=== PATIENT | female | born 1995 | race Two or more races ===

== ENCOUNTER 2018-04-16 07:27 | Emergency (ER) | payer MEDICAID ==
[~2018-04-16] VITALS: Ht 149.9 cm; Wt 72.1 kg
[2018-04-16 07:35] VITALS: Ht 149.9 cm; Wt 72.1 kg
[2018-04-16 08:40] VITALS: BP 115/73
== END 2018-04-16 08:40 | disposition home or self-care (01) ==
LOC: ED 07:27
DX: O23.43 Unspecified infection of urinary tract in pregnancy, third trimester (principal); O46.93 Antepartum hemorrhage, unspecified, third trimester; Z3A.35 35 weeks gestation of pregnancy